=== PATIENT | male | born 1990 | race Two or more races ===

== ENCOUNTER 2019-07-16 20:23 | Emergency (ER) | payer MEDICAID ==
[~2019-07-16] VITALS: Ht 180.3 cm; Wt 104.4 kg
[2019-07-16 20:46] VITALS: BP 146/102
[2019-07-16] MEDS ORDERED: LIDOCAINE-MPF 1%, 5ML ONE ×2 (22:27→23:20)
[2019-07-16] MEDS ORDERED: DIPH,PERTUSS(ACELL),TET VAC/PF 0.5 ML IM-VACC ONE ×2 (22:28→22:30)
[2019-07-16] MEDS ORDERED: LIDOCAINE-MPF 1%, 5ML INFIL ONE (22:30)
[2019-07-16] MEDS ORDERED: CEFTRIAXONE 1,000 MG ONE (23:38)
[2019-07-16] MEDS ORDERED: PLEASE ENTER ALLERGIES MC SCH (23:45)
[2019-07-16] MEDS ORDERED: NEOSPORIN OINT. PKT 1 PACKET ONE (23:49)
[2019-07-17] MEDS ORDERED: CEFTRIAXONE 1,000 MG IM ONE
--- NOTE | 2019-07-17 00:13 | NUR ---
splint applied to left arm.
== END 2019-07-17 00:15 | disposition home or self-care (01) ==
LOC: ED 21:23
DX: S61.012A Laceration without foreign body of left thumb without damage to nail, initial encounter (principal); W26.0XXA Contact with knife, initial encounter; Y93.89 Activity, other specified; Y92.89 Other specified places as the place of occurrence of the external cause; Y99.8 Other external cause status
CPT/HCPCS: 12001; 73130; 90471; 90715; 96372; 99284; J0696